=== PATIENT | female | born 1950 | race Caucasian/White ===

== ENCOUNTER 2023-03-19 10:38 | Outpatient (CLI) | payer MEDICARE | END 2023-03-19 10:39 | disposition home or self-care (01) | LOC: CSHMAMMO 10:38 | PROVIDERS: ATTEND Family Medicine | DX: Z12.31 Encounter for screening mammogram for malignant neoplasm of breast (principal); Z13.820 Encounter for screening for osteoporosis; M85.859 Other specified disorders of bone density and structure, unspecified thigh; Z98.82 Breast implant status; Z78.0 Asymptomatic menopausal state | CPT/HCPCS: 77063; 77067; 77080 ==